=== PATIENT | female | born 1940 | race Caucasian/White ===

== ENCOUNTER → 2017-01-27 | Outpatient (CLI) | payer MEDICARE, OTHER | LOC: WI 09:49 | PROVIDERS: ATTEND Physician Assistant | DX: Z12.31 Encounter for screening mammogram for malignant neoplasm of breast (principal) | CPT/HCPCS: 77067; G0202 ==

== ENCOUNTER 2017-02-07 10:19 | Emergency (ER) | payer MEDICARE, OTHER ==
--- NOTE | 2017-02-07 10:55 | ER Document Report ---
ED Cardiac - General Time seen by provider: 10:45 Mode of Arrival: Medic Information source: Patient, Emergency Med Personnel TRAVEL OUTSIDE OF THE [place] IN LAST 30 DAYS: No - HPI Patient complains to provider of: Other - syncope Associated symptoms: Other - See above <DANTE MORIN - Last Filed: 02/07/17 14:16> <AMMYERIKA CHAPARRITA - Last Filed: 02/07/17 19:37> - General Chief Complaint: Syncope Stated Complaint: syncope Notes: Patient is a 76 year old female, with a past medical history including HTN and DM, who presents to the emergency department via EMS for syncope. Patient reports she does not recall the episode, per patient was standing in the bathroom, turned and then lost consciousness. Patient states this has never happened before and she does not have a history of low heart rate. Patient reports she is currently feeling tired. Patient denies any new or changing medications, being on blood thinners, recent Asa use, chest pain, breathing difficulties, headache, or recent illness. Patient is currently on Lisinopril and Metformin. En route, EMS administered 1mg of Atropine to raise patient's heart rate from the 40s to the 60s, in room patient's heart rate was in the low 50s. (DANTE MORIN) - Related Data Allergies/Adverse Reactions: Penicillins Allergy (Verified 02/07/17 10:48) Home Medications: Current Home Medications Citalopram Hydrobromide [Citalopram HBr] 10 mg PO DAILY 02/07/17 [History] Lisinopril [Lisinopril] 10 mg PO DAILY 02/07/17 [History] Loratadine [Loratadine] 10 mg PO DAILY 02/07/17 [History] Metformin HCl [Metformin HCl] 1,000 mg PO DAILY 02/07/17 [History] Simvastatin [Simvastatin] 10 mg PO DAILY 02/07/17 [History] Past Medical History - General Information source: Patient - Social History Smoking Status: Unknown if Ever Smoked Family History: Reviewed & Not Pertinent - Past Medical History Cardiac Medical History: Reports: Hx Hypertension Endocrine Medical History: Reports: Hx Diabetes Mellitus Type 2 Past Surgical History: Reports: Hx Hysterectomy <DANTE MORIN - Last Filed: 02/07/17 14:16> Review of Systems - Review of Systems Constitutional: See HPI, Other - Tired EENT: No symptoms reported Cardiovascular: Syncope. denies: Chest pain Respiratory: denies: Other - Difficulty breathing Gastrointestinal: No symptoms reported Genitourinary: No symptoms reported Female Genitourinary: No symptoms reported Musculoskeletal: No symptoms reported Skin: No symptoms reported Hematologic/Lymphatic: No symptoms reported Neurological/Psychological: denies: Headaches -: Yes All other systems reviewed and negative <DANTE MORIN - Last Filed: 02/07/17 14:16> Physical Exam - Vital signs Interpretation: Bradycardic - HEENT Head: Normocephalic, Atraumatic Mucous membranes: Dry - Respiratory Respiratory status: No respiratory distress Chest status: Nontender Breath sounds: Normal Chest palpation: Normal - Cardiovascular Rhythm: Bradycardia Heart sounds: Normal auscultation Murmur: No - Abdominal Inspection: Normal Distension: No distension Bowel sounds: Normal Tenderness: Nontender Organomegaly: No organomegaly - Extremities General upper extremity: Normal inspection, Normal ROM, Normal strength General lower extremity: Normal inspection, Normal ROM, Normal strength - Neurological Neuro grossly intact: Yes Cognition: Confused - slightly Orientation: AAOx4 [place] Coma Scale Eye Opening: Spontaneous Viraj Coma Scale Verbal: Oriented [place] Coma Scale Motor: Obeys Commands [place] Coma Scale Total: 15 Speech: Normal Motor strength normal: LUE, RUE, LLE, RLE - Psychological Associated symptoms: Normal affect, Normal mood - Skin Skin Temperature: Warm Skin Moisture: Dry Skin Color: Normal <DANTE MORIN - Last Filed: 02/07/17 14:16> Course - Laboratory Result Diagrams: 02/07/17 10:35 02/07/17 11:59 - Consults [facility] Time consulted: 11:08 Hospitalist Time consulted: 11:11 <DANTE MORIN - Last Filed: 02/07/17 14:16> - Laboratory Result Diagrams: 02/07/17 10:35 02/07/17 11:59 - Diagnostic Test Radiology reviewed: Reports reviewed - EKG Interpretation by Me EKG shows normal: Sinus rhythm Rate: Bradycardia <ERIKA GIMENEZ - Last Filed: 02/07/17 19:37> - Re-evaluation Re-evalutation: 02/07/17 12:30 Patient is a 76-year-old female who presents after an episode of syncope and being unresponsive. Patient was noted to have heart rate in the 40s and hypotension. Patient had been given atropine by EMS and had resolution of symptoms. Patient is noted to be persistently bradycardic here. She is not on any rate lowering medications. Patient has no history of heart disease and has no history of syncope. Patient was discussed with the hospitalist service who recommends transfer. Patient was discussed with Dr. Levin at [facility] who will accept the patient in transfer for further workup of her syncope and symptomatic bradycardia. Stable at time of transfer. (ERIKA GIMENEZ) - Vital Signs Vital signs: Temp Pulse Resp BP Pulse Ox 97.6 F 46 L 12 121/61 98 02/07/17 12:52 02/07/17 12:52 02/07/17 12:52 02/07/17 12:52 02/07/17 12:52 - Laboratory Laboratory results interpreted by me: 02/07/17 02/07/17 02/07/17 10:35 11:59 11:59 Eosinophils % 12.4 H Potassium 5.3 H BUN 22 H Total Protein 5.9 L TSH 5.59 H - Consults [facility] Reason for consultation: 02/07/17 11:08 Discussed patient's condition with Dr. Levin who will call ED and get back to me. 02/07/17 11:31 Dr. Levin called back and agrees to accept transfer based on [facility] hospitalist declining admission. (DANTE MORIN) Hospitalist Reason for consultation: 02/07/17 11:11 Discussed patient's condition with Dr. Irvin who agrees patient should be transferred. 02/07/17 11:[address] Irvin of patient's transfer to [facility] (DANTE MORIN) Discharge <DANTE MORIN - Last Filed: 02/07/17 14:16> <ERIKA GIMENEZ - Last Filed: 02/07/17 19:37> - Discharge Clinical Impression: Symptomatic bradycardia Syncope Qualifiers: Syncope type: unspecified Qualified Code(s): R55 - Syncope and collapse Condition: Stable Disposition: [facility], [facility] Referrals: JENNIFER CEDEÑO MD [Primary Care Provider] - Follow up as needed Scribe Attestation: 02/07/17 19:37 I personally performed the services described in the documentation, reviewed and edited the documentation which was dictated to the scribe in my presence, and it accurately records my words and actions. (ERIKA GIMENEZ) Scribe Documentation - Scribe Written by Lc:: lc Meneses, 02/07/17, 1105 acting as scribe for :: Ammy <DANTE MORIN - Last Filed: 02/07/17 14:16>
[2017-02-07 10:58] LABS: ABSOLUTE EOSINOPHILS # (AUTO) 0.6 10^3/uL (0.0-0.6); ABSOLUTE LYMPHOCYTES (AUTO) 1.6 10^3/uL (0.5-4.7); ABSOLUTE MONOCYTES (AUTO) 0.4 10^3/uL (0.1-1.4); ABSOLUTE NEUT (AUTO) 2.2 10^3/uL (1.7-8.2); BASOPHILS % (AUTO) 0.7 % (0-2); EOSINOPHILS % (AUTO) 12.4 % (0-6); HEMATOCRIT 36.8 % (36.0-47.0); HEMOGLOBIN 12.2 g/dL (12.0-15.5); HGB HCT DIFFERENCE -0.2; LYMPHOCYTES % (AUTO) 33.6 % (13-45); MEAN CORPUSCULAR HEMOGLOBIN 29.4 pg (27.0-33.4); MEAN CORPUSCULAR HGB CONC 33.2 g/dL (32.0-36.0); MEAN CORPUSCULAR VOLUME 89 fl (80-97); MONOCYTES % (AUTO) 8.6 % (3-13); RED BLOOD COUNT 4.16 10^6/uL (3.72-5.28); RED CELL DISTRIBUTION WIDTH 13.6 % (11.5-14.0); SEGMENTED NEUTROPHILS % (AUTO) 44.7 % (42-78); WHITE BLOOD COUNT 4.9 10^3/uL (4.0-10.5)
[2017-02-07 12:36] VITALS: BP 121/61
[2017-02-07 12:42] LABS: ALANINE AMINOTRANSFERASE 27 U/L (9-52); ALBUMIN 3.6 g/dL (3.5-5.0); ALKALINE PHOSPHATASE 65 U/L (38-126); ANION GAP 10 (5-19); ASPARTATE AMINO TRANSFERASE 18 U/L (14-36); BILIRUBIN,DIRECT 0.1 mg/dL (0.0-0.4); BILIRUBIN,TOTAL 0.7 mg/dL (0.2-1.3); BLOOD UREA NITROGEN 22 mg/dL (7-20); CALCIUM 9.2 mg/dL (8.4-10.2); CARBON DIOXIDE 27 mmol/L (22-30); CHLORIDE 103 mmol/L (98-107); CREATINE KINASE 34 U/L (30-135); CREATININE RESULT 0.77 mg/dL (0.52-1.25); GLUCOSE 109 mg/dL (75-110); POTASSIUM 5.3 mmol/L (3.6-5.0); SODIUM 140.3 mmol/L (137-145); TOTAL PROTEIN 5.9 g/dL (6.3-8.2)
[2017-02-07 12:53] LABS: CREATINE KINASE MB 0.61 ng/mL (<4.55)
--- NOTE | 2017-02-07 12:54 | EKG REPORT ---
SEVERITY:- OTHERWISE NORMAL ECG - SINUS RHYTHM LOW VOLTAGE IN FRONTAL LEADS : Confirmed by: Eunice Dejesus MD 07-Feb-2017 12:53:11
[2017-02-07 12:55] LABS: TROPONIN I < 0.012 ng/mL
--- NOTE | 2017-02-07 19:10 | EKG REPORT ---
SEVERITY:- OTHERWISE NORMAL ECG - SINUS BRADYCARDIA LOW VOLTAGE IN FRONTAL LEADS : Confirmed by: Eunice Dejesus MD 07-Feb-2017 19:10:25
== END 2017-02-07 13:00 | disposition short-term general hospital (02) ==
LOC: ER 10:19
DX: R00.1 Bradycardia, unspecified (principal); R55 Syncope and collapse; I10 Essential (primary) hypertension; E11.9 Type 2 diabetes mellitus without complications; Z79.899 Other long term (current) drug therapy
CPT/HCPCS: 36415; 70450; 71010; 80053; 82550; 82553; 84443; 84484; 85025; 93005; 93010; 99285

== ENCOUNTER → 2018-02-01 | Outpatient (CLI) | payer MEDICAID, MEDICARE, OTHER ==
--- NOTE | 2018-02-01 17:21 | WOMENS IMAGING REPORT ---
EXAM DESCRIPTION: 3D SCREENING MAMMO BILAT COMPLETED DATE/TIME: 02/01/2018 11:08 am REASON FOR STUDY: SCREENING MAMMO Z12.31 ENCNTR SCREEN MAMMOGRAM FOR MALIGNANT NEOPLASM OF SERGEY COMPARISON: 2013 to 2016 TECHNIQUE: Standard craniocaudal and mediolateral oblique views of each breast recorded using digita l acquisition and breast tomosynthesis. LIMITATIONS: None. FINDINGS: No masses, calcifications or architectural distortion. No areas of suspicion. Read with the assistance of CAD. .[facility] - R2 Cenova Version 1.3 .[facility] - R2 Cenova Version 1.3 .[facility] - R2 Cenova Version 2.4 .[facility] - R2 Cenova Version 2.4 .[facility] - R2 Executive Manager Version 9.2 IMPRESSION: NORMAL MAMMOGRAM. BIRADS 1. BREAST DENSITY: b. There are scattered areas of fibroglandular density. BIRAD: 1 NEGATIVE RECOMMENDATION: ROUTINE SCREENING COMMENT: The patient has been notified of the results by letter per SA requirements. Additional no tification policies are in place for contacting patient with suspicious or incomplete findings. Quality ID #[id number]: The [employer] recommends an annual screening mammogram for women aged 40 years or over. This facility utilizes a reminder system to ensure that all patients receive reminder letters, and/or direct phone calls for appointments. This includes reminders for routine scr eening mammograms, diagnostic mammograms, or other Breast Imaging Interventions when appropriate. Th is patient will be placed in the appropriate reminder system. The [place] [employer] (ACR) has developed recommendations for screening MRI of the breast s in certain patient populations, to be used in conjunction with mammography. Breast MRI surveillanc e may be appropriate for women with more than 20% lifetime risk of developing breast cancer as deter mined by genetic testing, significant family history of the disease, or history of mantle radiation f or Hodgkins Disease. ACR Practice Guidelines 2008. DBT Technology DBT is a type of tomographic mammography. With conventional mammography, overlapping breast tissue ma y make lesions difficult to detect, even with good compression. DBT uses an x-ray tube that rotates a round the breast, taking images at different angles. These images are then combined to create thin sl ices of the breast that the radiologist can view as a 3D reconstruction. The [employer] unit can perform full-field digital mammograms (2D imaging); or DBT (3D imaging); or both, in a combination mode that quickly performs both the mammogram and the tomosynthesis scan while the breast is still compressed. PQRS 6045F: Fluoroscopic imaging is not utilized for breast tomosynthesis. TECHNICAL DOCUMENTATION: FINDING NUMBER: (1) ASSESSMENT: (1) JOB ID: [id number] [employer]- All Rights Reserved Reading location - IP/workstation name: [email or web address] [id number]
== END ==
LOC: WI 10:44
PROVIDERS: ATTEND Physician Assistant
DX: Z12.31 Encounter for screening mammogram for malignant neoplasm of breast (principal)
CPT/HCPCS: 77063; 77067

== ENCOUNTER 2018-08-01 11:09 | Emergency (ER) | payer MEDICARE ==
[2018-08-01] MEDS ORDERED: NORMAL SALINE 1000 ML 1,000 ML IV ONE (11:43)
--- NOTE | 2018-08-01 11:49 | ER Document Report ---
ED General - General Chief Complaint: Altered Mental Status Stated Complaint: ALTERED MENTAL STATUS Time Seen by Provider: 08/01/18 11:20 TRAVEL OUTSIDE OF THE [place] IN LAST 30 DAYS: No - HPI Notes: Patient is a 78-year-old female that presents to the emergency department for chief complaint of weakness. Patient was checked on by members of her latter day after her and her were not heard from for a few days. EMS reports that the house was disheveled and that her and her were eating food out of the refrigerator that had been without power for a few days. She complains of generalized fatigue but has no specific complaints. She does have a history of dementia and is reportedly at her baseline mental status per her and her mitochondrial disorders counselor. Patient denies any nausea, vomiting, abdominal pain, chest pain, shortness of breath, headache, vision changes and diarrhea. HPI is limited because of patient's dementia. Past Medical History: Dementia, hyperlipidemia, hypertension, diabetes Past Surgical History: Denies Social History: Denies drugs alcohol and tobacco Family History: Reviewed and noncontributory for presenting illness Allergies: Reviewed, see documented allergy list. REVIEW OF SYSTEMS: CONSTITUTIONAL : Fatigue No fever No chills No diaphoresis No recent illness EENT: No vision changes No congestion No sore throat CARDIOVASCULAR: No chest pain No palpitations RESPIRATORY: No shortness of breath No cough No difficulty breathing GASTROINTESTINAL: No abdominal pain No nausea No vomiting No diarrhea GENITOURINARY: No dysuria No hematuria No difficulty urinating MUSCULOSKELETAL: No back pain No leg pain No arm pain SKIN: No rashes No lesions LYMPHATIC: No swollen, enlarged glands. NEUROLOGICAL: No lightheadedness No headache No weakness No paresthesias PSYCHIATRIC: No anxiety No depression PHYSICAL EXAMINATION: Vital signs reviewed, nursing noted reviewed. GENERAL: Well-appearing, well-nourished and in no acute distress. HEAD: Atraumatic, normocephalic. EYES: Eyes appear normal, extraocular movements intact, sclera anicteric, conjunctiva are normal. ENT: nares patent, oropharynx clear without exudates. Mildly dry mucous membranes. NECK: Normal range of motion, supple without lymphadenopathy LUNGS: Breath sounds clear to auscultation bilaterally and equal. No wheezes rales or rhonchi. HEART: Regular rate and rhythm without murmurs ABDOMEN: Soft, nontender, normoactive bowel sounds. No rebound, guarding, or rigidity. No masses appreciated. EXTREMITIES: Nontender, good range of motion, no pitting or edema. NEUROLOGICAL: No focal neurological deficits. Moves all extremities spontaneously Motor and sensory grossly intact on exam. Oriented to person and place. Disoriented to time PSYCH: Normal mood, normal affect. SKIN: Warm, Dry, normal turgor, no rashes or lesions noted on exposed skin - Related Data Allergies/Adverse Reactions: Penicillins Allergy (Verified 02/07/17 10:48) Past Medical History - Social History Smoking Status: Never Smoker Chew tobacco use (# tins/day): No Frequency of alcohol use: None Drug Abuse: None Family History: Reviewed & Not Pertinent Patient has suicidal ideation: No Patient has homicidal ideation: No - Past Medical History Cardiac Medical History: Reports: Hx Hypertension Endocrine Medical History: Reports: Hx Diabetes Mellitus Type 2 Renal/ Medical History: Denies: Hx Peritoneal Dialysis Past Surgical History: Reports: Hx Hysterectomy Review of Systems - Review of Systems Notes: Dictated Physical Exam - Vital signs Vitals: Temp Resp BP Pulse Ox 98 F 14 121/55 L 100 08/01/18 11:55 08/01/18 11:55 08/01/18 11:55 08/01/18 11:55 - Notes Notes: Dictated Course - Re-evaluation Re-evalutation: 08/01/18 11:48 Vitals reviewed. Nursing notes reviewed. Patient awake, alert and in no acute distress. EKG shows no acute ischemia 08/01/18 12:51 Patient has remained hemodynamically stable she is bradycardic but has a pacemaker and is not symptomatic. Lab work shows no dehydration or electrolyte derangement. She has no pneumonia or urinary tract infection. Cardiac enzyme is normal. Patient is requesting to be discharged home. She is at her baseline mental status. She will be discharged in stable condition. She was told to follow with her primary care provider in a few days for reevaluation. She will return to the emergency room for any new or worsening symptoms. 08/01/18 12:51 Laboratory 08/01/18 08/01/18 08/01/18 11:28 11:28 11:28 WBC 4.8 RBC 4.14 Hgb 12.5 Hct 36.9 MCV 89 MCH 30.1 MCHC 33.8 RDW 13.1 Plt Count 208 Seg Neutrophils % 41.9 L Lymphocytes % 35.6 Monocytes % 10.8 Eosinophils % 10.4 H Basophils % 1.3 Absolute Neutrophils 2.0 Absolute Lymphocytes 1.7 Absolute Monocytes 0.5 Absolute Eosinophils 0.5 Absolute Basophils 0.1 Sodium 139.2 Potassium 4.6 Chloride 105 Carbon Dioxide 31 H Anion Gap 3 L BUN 27 H Creatinine 1.02 Est GFR ( Amer) > 60 Est GFR (Non-Af Amer) 53 L Glucose 86 Calcium 9.4 Troponin I < 0.012 Urine Color Urine Appearance Urine pH Ur Specific [place] Urine Protein Urine Glucose (UA) Urine Ketones Urine Blood Urine Nitrite Urine Bilirubin Urine Urobilinogen Ur Leukocyte Esterase Urine WBC (Auto) Urine RBC (Auto) Urine Bacteria (Auto) Amorphous Sediment Auto Urine Mucus (Auto) Urine Ascorbic Acid 08/01/18 11:28 WBC RBC Hgb Hct MCV MCH MCHC RDW Plt Count Seg Neutrophils % Lymphocytes % Monocytes % Eosinophils % Basophils % Absolute Neutrophils Absolute Lymphocytes Absolute Monocytes Absolute Eosinophils Absolute Basophils Sodium Potassium Chloride Carbon Dioxide Anion Gap BUN Creatinine Est GFR ( Amer) Est GFR (Non-Af Amer) Glucose Calcium Troponin I Urine Color YELLOW Urine Appearance TURBID Urine pH 5.0 Ur Specific [place] 1.024 Urine Protein NEGATIVE Urine Glucose (UA) NEGATIVE Urine Ketones NEGATIVE Urine Blood SMALL H Urine Nitrite NEGATIVE Urine Bilirubin NEGATIVE Urine Urobilinogen NEGATIVE Ur Leukocyte Esterase NEGATIVE Urine WBC (Auto) 9 Urine RBC (Auto) 3 Urine Bacteria (Auto) 1+ Amorphous Sediment Auto 3+ Urine Mucus (Auto) MANY Urine Ascorbic Acid NEGATIVE Chest X-Ray 08/01/18 11:43 IMPRESSION: NO ACUTE RADIOGRAPHIC FINDING IN THE CHEST. - Vital Signs Vital signs: Temp Pulse Resp BP Pulse Ox 98 F 50 L 19 125/78 99 08/01/18 11:55 08/01/18 12:00 08/01/18 12:01 08/01/18 12:01 08/01/18 12:01 - Laboratory Result Diagrams: 08/01/18 11:28 08/01/18 11:28 Laboratory results interpreted by me: 08/01/18 08/01/18 08/01/18 11:28 11:28 11:28 Seg Neutrophils % 41.9 L Eosinophils % 10.4 H Carbon Dioxide 31 H Anion Gap 3 L BUN 27 H Est GFR (Non-Af Amer) 53 L Urine Blood SMALL H - EKG Interpretation by Me Additional EKG results interpreted by me: 08/01/18 11:49 1116: Atrial paced rhythm, rate 50, low voltage, normal MO and QRS, and no ectopy Discharge - Discharge Clinical Impression: Generalized weakness, Bradycardia Condition: Stable Disposition: HOME, SELF-CARE Instructions: Fatigue ([facility]) Additional Instructions: Please return to the emergency department if you have any worsening, or concern of your symptoms. Please return to the emergency department if you develop chest pain, difficulty breathing, severe abdominal pain, or ongoing vomiting. Please follow-up with your primary care physician in 2-3 days and any other recommended physicians. If prescribed, take all medications as directed. If you have any questions or concerns do not hesitate to return the emergency department for evaluation. [] Referrals: ERIKA LOONEY PA [Primary Care Provider] - Follow up in 3-5 days
[2018-08-01 12:04] LABS: ABSOLUTE BASOPHILS # (AUTO) 0.1 10^3/uL (0.0-0.2); ABSOLUTE EOSINOPHILS # (AUTO) 0.5 10^3/uL (0.0-0.6); ABSOLUTE LYMPHOCYTES (AUTO) 1.7 10^3/uL (0.5-4.7); ABSOLUTE MONOCYTES (AUTO) 0.5 10^3/uL (0.1-1.4); BASOPHILS % (AUTO) 1.3 % (0-2); EOSINOPHILS % (AUTO) 10.4 % (0-6); HEMATOCRIT 36.9 % (36.0-47.0); HEMOGLOBIN 12.5 g/dL (12.0-15.5); LYMPHOCYTES % (AUTO) 35.6 % (13-45); MEAN CORPUSCULAR HEMOGLOBIN 30.1 pg (27.0-33.4); MEAN CORPUSCULAR HGB CONC 33.8 g/dL (32.0-36.0); MEAN CORPUSCULAR VOLUME 89 fl (80-97); MONOCYTES % (AUTO) 10.8 % (3-13); PLATELET COUNT 208 10^3/uL (150-450); RED BLOOD COUNT 4.14 10^6/uL (3.72-5.28); RED CELL DISTRIBUTION WIDTH 13.1 % (11.5-14.0); SEGMENTED NEUTROPHILS % (AUTO) 41.9 % (42-78); TOTAL CELLS COUNTED % (AUTO) 100 %; WHITE BLOOD COUNT 4.8 10^3/uL (4.0-10.5)
[2018-08-01 12:09] LABS: AMORPHOUS SEDIMENT,URINE 3+ /HPF; APPEARANCE,URINE TURBID; BILIRUBIN,URINE NEGATIVE (NEGATIVE); COLOR,URINE YELLOW; GLUCOSE, URINE NEGATIVE (NEGATIVE); KETONES,URINE NEGATIVE (NEGATIVE); LEUKOCYTE ESTERASE,URINE NEGATIVE (NEGATIVE); NITRITE,URINE NEGATIVE (NEGATIVE); PROTEIN,URINE NEGATIVE (NEGATIVE); URINE SPECIFIC GRAVITY 1.024; UROBILINOGEN,URINE NEGATIVE mg/dL (<2.0)
[2018-08-01 12:12] LABS: BLOOD UREA NITROGEN 27 mg/dL (7-20); CALCIUM 9.4 mg/dL (8.4-10.2); CARBON DIOXIDE 31 mmol/L (22-30); GLUCOSE 86 mg/dL (75-110); POTASSIUM 4.6 mmol/L (3.6-5.0); SODIUM 139.2 mmol/L (137-145)
--- NOTE | 2018-08-01 12:12 | RADIOLOGY REPORT (SQ) ---
EXAM DESCRIPTION: CHEST SINGLE VIEW COMPLETED DATE/TIME: 08/01/2018 12:01 pm REASON FOR STUDY: cough COMPARISON: 02/07/2017 EXAM PARAMETERS: NUMBER OF VIEWS: One view. TECHNIQUE: Single frontal radiographic view of the chest acquired. RADIATION DOSE: NA LIMITATIONS: None. FINDINGS: LUNGS AND PLEURA: No opacities, masses or pneumothorax. No pleural effusion. MEDIASTINUM AND HILAR STRUCTURES: No masses. Contour normal. HEART AND VASCULAR STRUCTURES: Heart normal in size. Normal vasculature. BONES: No acute findings. HARDWARE: Left dual lead pacemaker. OTHER: No other significant finding. IMPRESSION: NO ACUTE RADIOGRAPHIC FINDING IN THE CHEST. TECHNICAL DOCUMENTATION: JOB ID: [id number] [employer]- All Rights Reserved Reading location - IP/workstation name: [email or web address]
[2018-08-01 12:17] LABS: CHLORIDE 105 mmol/L (98-107)
[2018-08-01 12:19] LABS: ANION GAP 3 (5-19)
[2018-08-01 13:25] VITALS: BP 122/74
--- NOTE | 2018-08-01 17:03 | EKG REPORT ---
SEVERITY:- ABNORMAL ECG - ATRIAL-PACED RHYTHM LOW VOLTAGE IN FRONTAL LEADS : Confirmed by: Eunice Dejesus MD 01-Aug-2018 17:01:52
== END 2018-08-01 13:26 | disposition home or self-care (01) ==
LOC: ER 11:09
DX: R53.1 Weakness (principal); R00.1 Bradycardia, unspecified; R53.83 Other fatigue; F03.90 Unspecified dementia, unspecified severity, without behavioral disturbance, psychotic disturbance, mood disturbance, and anxiety; I10 Essential (primary) hypertension; E11.9 Type 2 diabetes mellitus without complications; Z88.0 Allergy status to penicillin; Z95.0 Presence of cardiac pacemaker
CPT/HCPCS: 36415; 71045; 80048; 81001; 84484; 85025; 93005; 93010; 96360; 99285

== ENCOUNTER → 2019-02-06 | Outpatient (CLI) | payer MEDICARE ==
--- NOTE | 2019-02-06 16:06 | WOMENS IMAGING REPORT ---
EXAM DESCRIPTION: 3D SCREENING MAMMO BILAT COMPLETED DATE/TIME: 02/06/2019 1:25 pm REASON FOR STUDY: Z12.31 ROUTINE 3D BILATERAL SCREENING Z12.31 ENCNTR SCREEN MAMMOGRAM FOR MALIGNAN T NEOPLASM OF SERGEY COMPARISON: 02/01/2018 and 01/27/2017. TECHNIQUE: Standard craniocaudal and mediolateral oblique views of each breast recorded using digita l acquisition and breast tomosynthesis. LIMITATIONS: None. FINDINGS: No masses, calcifications or architectural distortion. No areas of suspicion. Read with the assistance of CAD. .[facility] - R2 Cenova Version 1.3 .[facility] - R2 Cenova Version 2.1 .[facility] - R2 Cenova Version 2.4 .[facility] [place] R2 Cenova Version 2.4 .[facility] - R2 [employer] Instructor Version 9.2 IMPRESSION: NORMAL MAMMOGRAM. BIRADS 1. BREAST DENSITY: b. There are scattered areas of fibroglandular density. BIRAD: 1 NEGATIVE RECOMMENDATION: ROUTINE SCREENING COMMENT: The patient has been notified of the results by letter per SA requirements. Additional no tification policies are in place for contacting patient with suspicious or incomplete findings. Quality ID #[id number]: The [employer] [employer] recommends an annual screening mammogram for women aged 40 years or over. This facility utilizes a reminder system to ensure that all patients receive reminder letters, and/or direct phone calls for appointments. This includes reminders for routine scr eening mammograms, diagnostic mammograms, or other Breast Imaging Interventions when appropriate. Th is patient will be placed in the appropriate reminder system. The [employer] [employer] (ACR) has developed recommendations for screening MRI of the breast s in certain patient populations, to be used in conjunction with mammography. Breast MRI surveillanc e may be appropriate for women with more than 20% lifetime risk of developing breast cancer as deter mined by genetic testing, significant family history of the disease, or history of mantle radiation f or Hodgkins Disease. ACR Practice Guidelines 2008. DBT Technology DBT is a type of tomographic mammography. With conventional mammography, overlapping breast tissue ma y make lesions difficult to detect, even with good compression. DBT uses an x-ray tube that rotates a round the breast, taking images at different angles. These images are then combined to create thin sl ices of the breast that the radiologist can view as a 3D reconstruction. The [employer] unit can perform full-field digital mammograms (2D imaging); or DBT (3D imaging); or both, in a combination mode that quickly performs both the mammogram and the tomosynthesis scan while the breast is still compressed. PQRS 6045F: Fluoroscopic imaging is not utilized for breast tomosynthesis. TECHNICAL DOCUMENTATION: FINDING NUMBER: (1) ASSESSMENT: (1) JOB ID: [id number] [employer]- All Rights Reserved Reading location - IP/workstation name: [email or web address]
== END ==
LOC: WI 12:58
PROVIDERS: ATTEND Physician Assistant
DX: Z12.31 Encounter for screening mammogram for malignant neoplasm of breast (principal)
CPT/HCPCS: 77063; 77067

== ENCOUNTER 2020-03-03 11:39 | Emergency (ER) | payer MEDICARE ==
--- NOTE | 2020-03-03 12:12 | ER Document Report ---
ED Medical Screen (RME) - General Chief Complaint: General Weakness Stated Complaint: DR JAMEY Time Seen by Provider: 03/03/20 11:54 Primary Care Provider: LUZ MARIA VILLALOBOS PA [Primary Care Provider] - Follow up as needed Mode of Arrival: Wheelchair Information source: Patient Notes: 79-year-old female patient presenting from her primary care provider's office with complaint of dizziness, weakness and hypotension. Patient reports that her blood pressure was normal when she left Dr. Quezada's office, she took her blood pressure medication right after she left his office and she is now hypotensive. She reports that she has been feeling dizzy and confused over the last few days. Her caregiver is in triage with her, he reports she is not acting like herself. I have greeted and performed a rapid initial assessment of this patient. A comprehensive ED assessment and evaluation of the patient, analysis of test results and completion of the medical decision making process will be conducted by additional ED providers. I have specifically instructed the patient or family members with the patient to immediately return to any nursing staff should anything change in the patient's condition or with their chief complaint. TRAVEL OUTSIDE OF THE [place] IN LAST 30 DAYS: No - Related Data Allergies/Adverse Reactions: aspirin Allergy (Verified 03/03/20 11:49) Penicillins Allergy (Verified 03/03/20 11:48) Home Medications: Clonidine, Glucophage, Celexa, Aricept, Lisnopril, Namenda, Trazadone, Zocor Past Medical History - Social History Chew tobacco use (# tins/day): No Frequency of alcohol use: None Drug Abuse: None - Past Medical History Cardiac Medical History: Reports: Hx Hypertension Endocrine Medical History: Reports: Hx Diabetes Mellitus Type 2 Renal/ Medical History: Denies: Hx Peritoneal Dialysis Past Surgical History: Reports: Hx Hysterectomy Physical Exam - Vital signs Vitals: Temp Pulse Resp BP Pulse Ox 98.7 F 53 L 20 62/45 L 98 03/03/20 11:50 03/03/20 11:50 03/03/20 11:50 03/03/20 11:50 03/03/20 11:50 Course - Vital Signs Vital signs: Temp Pulse Resp BP Pulse Ox 98.7 F 53 L 20 62/45 L 98 03/03/20 11:52 03/03/20 11:50 03/03/20 11:50 03/03/20 11:52 03/03/20 11:50 Doctor's Discharge - Discharge Referrals: LUZ MARIA VILLALOBOS PA [Primary Care Provider] - Follow up as needed
--- NOTE | 2020-03-03 12:47 | RADIOLOGY REPORT (SQ) ---
EXAM DESCRIPTION: CHEST SINGLE VIEW IMAGES COMPLETED DATE/TIME: 03/03/2020 12:38 pm REASON FOR STUDY: weakness, confusion COMPARISON: AP view of the chest from 02/07/2017. EXAM PARAMETERS: NUMBER OF VIEWS: One view. TECHNIQUE: An AP view of the chest was obtained. RADIATION DOSE: NA LIMITATIONS: None. FINDINGS: LUNGS AND PLEURA: No consolidation, pleural effusion or pneumothorax. MEDIASTINUM AND HILAR STRUCTURES: No mediastinal or hilar contour abnormality. HEART AND VASCULAR STRUCTURES: The cardiac silhouette and pulmonary vasculature are within normal patterson its. BONES: No acute findings. HARDWARE: Intact dual lead left subclavian vein approach transvenous pacemaker. OTHER: No other finding. IMPRESSION: No acute cardiopulmonary process. TECHNICAL DOCUMENTATION: JOB ID: [id number] 2010 [employer]- All Rights Reserved Reading location - IP/workstation name: [email or web address]
[2020-03-03 13:06] LABS: ABSOLUTE BASOPHILS # (AUTO) 0.1 10^3/uL (0.0-0.2); ABSOLUTE MONOCYTES (AUTO) 0.6 10^3/uL (0.1-1.4); ABSOLUTE NEUT (AUTO) 4.9 10^3/uL (1.7-8.2); BASOPHILS % (AUTO) 0.8 % (0-2); EOSINOPHILS % (AUTO) 0.5 % (0-6); HEMATOCRIT 40.7 % (36.0-47.0); HEMOGLOBIN 13.6 g/dL (12.0-15.5); LYMPHOCYTES % (AUTO) 15.8 % (13-45); MEAN CORPUSCULAR HGB CONC 33.3 g/dL (32.0-36.0); MEAN CORPUSCULAR VOLUME 90 fl (80-97); PLATELET COUNT 210 10^3/uL (150-450); RED BLOOD COUNT 4.52 10^6/uL (3.72-5.28); RED CELL DISTRIBUTION WIDTH 14.1 % (11.5-14.0); SEGMENTED NEUTROPHILS % (AUTO) 73.9 % (42-78); TOTAL CELLS COUNTED % (AUTO) 100 %; WHITE BLOOD COUNT 6.6 10^3/uL (4.0-10.5)
[2020-03-03] MEDS ORDERED: NORMAL SALINE 1000 ML 1,000 ML IV ONE ×2 (13:12→14:54)
--- NOTE | 2020-03-03 13:21 | RADIOLOGY REPORT (SQ) ---
EXAM DESCRIPTION: CT HEAD WITHOUT IMAGES COMPLETED DATE/TIME: 03/03/2020 1:05 pm REASON FOR STUDY: confusion COMPARISON: CT of the head without contrast from 02/07/2017. TECHNIQUE: Axial images acquired through the brain without intravenous contrast. Images reviewed wi th bone, brain and subdural windows. Additional sagittal and coronal reconstructions were generated. Images stored on PACS. All CT scanners at this facility use dose modulation, iterative reconstruction, and/or weight based d osing when appropriate to reduce radiation dose to as low as reasonably achievable (ALARA). [facility]: Dose Right [facility]: CareDose [facility]: Dose Right [facility]: Teradose 4D [facility]: Varolii RADIATION DOSE: CT Rad equipment meets quality standard of care and radiation dose reduction techniq ues were employed. CTDIvol: 53.2 mGy. DLP: 1017 mGy-cm. LIMITATIONS: None. FINDINGS: The confluent areas of hypoattenuation within the supratentorial periventricular and subco rtical white matter are unchanged. There is a questionable round isodense cystic lesion near the for amen of [place] that measures 8 x 8 mm and is unchanged in size from 02/07/2017. There is no acute intracranial hemorrhage, vascular territorial infarct, extra-axial fluid collection , mass effect or midline shift. The gloria-white matter differentiation is preserved. There is no eff acement of the cerebral sulci or basal subarachnoid cisterns. The caliber the ventricles is concorda nt with the degree of sulcation and unchanged from 02/07/2017. The orbits and globes are intact. There is a mucous retention cyst within the left maxillary sinus. There is a jerry hole in the right parietal bone. There is no acute calvarial fracture. IMPRESSION: No acute intracranial abnormality. EVIDENCE OF ACUTE STROKE: NO. COMMENT: Quality ID # [id number]: Final reports with documentation of one or more dose reduction techniques (e.g., Automated exposure control, adjustment of the mA and/or kV according to patient size, use of iterative reconstruction technique) TECHNICAL DOCUMENTATION: JOB ID: [id number] 2010 [employer]- All Rights Reserved Reading location - IP/workstation name: [email or web address]
[2020-03-03 13:23] LABS: ALBUMIN 4.2 g/dL (3.5-5.0); ALKALINE PHOSPHATASE 67 U/L (38-126); ANION GAP 10 (5-19); ASPARTATE AMINO TRANSFERASE 22 U/L (14-36); BILIRUBIN,TOTAL 1.5 mg/dL (0.2-1.3); BLOOD UREA NITROGEN 29 mg/dL (7-20); CALCIUM 9.8 mg/dL (8.4-10.2); CARBON DIOXIDE 25 mmol/L (22-30); CHLORIDE 100 mmol/L (98-107); GLUCOSE 100 mg/dL (75-110); POTASSIUM 4.7 mmol/L (3.6-5.0); TOTAL PROTEIN 6.8 g/dL (6.3-8.2)
--- NOTE | 2020-03-03 14:29 | ER Document Report ---
Entered by NIELS WHITLEY SCRIBE 03/03/20 1253 Acting as scribe for:MATT HARRIS MD ED General - General Chief Complaint: General Weakness Stated Complaint: DR JAMEY Time Seen by Provider: 03/03/20 11:54 Primary Care Provider: LUZ MARIA VILLALOBOS PA [NO LOCAL MD] - Follow up as needed Mode of Arrival: Wheelchair Information source: Patient, Relative, Dr. Office, [facility] Records Notes: This 79 year old female patient presents to the emergency department today with complaints of generalized weakness for the last few days. Family member at bedside states that he made the patient an appointment today at her primary care physician's office, Dr. Quezada, for this generalized weakness. Family member states that patient needed a little bit of assistance with ambulation into the office which is not normal and by the time it was ready for them to go from the waiting room to the examination room he had to "basically carry her" due to weakness. TRAVEL OUTSIDE OF THE [place] IN LAST 30 DAYS: No - Related Data Allergies/Adverse Reactions: aspirin Allergy (Verified 03/03/20 11:49) Penicillins Allergy (Verified 03/03/20 11:48) Home Medications: Clonidine, Glucophage, Celexa, Aricept, Lisnopril, Namenda, Trazadone, Zocor Past Medical History - General Information source: Patient - Social History Smoking Status: Never Smoker Cigarette use (# per day): No Chew tobacco use (# tins/day): No Frequency of alcohol use: None Drug Abuse: None Lives with: Family Family History: Reviewed & Not Pertinent Patient has suicidal ideation: No Patient has homicidal ideation: No - Past Medical History Cardiac Medical History: Reports: Hx Hypercholesterolemia, Hx Hypertension Endocrine Medical History: Reports: Hx Diabetes Mellitus Type 2 Past Surgical History: Reports: Hx Hysterectomy, Hx Pacemaker - History of sick sinus syndrome Review of Systems - Review of Systems Constitutional: See HPI, Weakness, Other - "wobbly" ambulation EENT: No symptoms reported Cardiovascular: See HPI, Dizziness Respiratory: No symptoms reported Gastrointestinal: No symptoms reported Genitourinary: No symptoms reported Female Genitourinary: No symptoms reported Musculoskeletal: No symptoms reported Skin: No symptoms reported Hematologic/Lymphatic: No symptoms reported Neurological/Psychological: No symptoms reported -: Yes All other systems reviewed and negative Physical Exam - Vital signs Vitals: Temp Pulse Resp BP Pulse Ox 98.7 F 53 L 20 62/45 L 98 03/03/20 11:50 03/03/20 11:50 03/03/20 11:50 03/03/20 11:50 03/03/20 11:50 Interpretation: Normal - General General appearance: Alert, Other - fairly thin appearing In distress: None - HEENT Head: Normocephalic, Atraumatic Eyes: Normal Pupils: PERRL - Respiratory Respiratory status: No respiratory distress Breath sounds: Normal Chest palpation: Normal - Cardiovascular Rhythm: Regular Heart sounds: Normal auscultation Murmur: No Notes: Pressure of 118/76 in supine position, 77/57 when standing. - Abdominal Inspection: Normal Distension: No distension Bowel sounds: Normal Tenderness: Nontender Organomegaly: No organomegaly - Back Back: Normal, Nontender - Extremities General upper extremity: Normal inspection, Nontender, Normal strength General lower extremity: Normal inspection, Nontender, Normal strength - Neurological Neuro grossly intact: Yes Cognition: Normal Orientation: AAOx4 Howell Coma Scale Eye Opening: Spontaneous Howell Coma Scale Verbal: Oriented Howell Coma Scale Motor: Obeys Commands Viraj Coma Scale Total: 15 Speech: Normal - Psychological Associated symptoms: Normal affect, Normal mood - Skin Skin Temperature: Warm Skin Moisture: Dry Skin Color: Normal Course - Re-evaluation Re-evalutation: 03/03/20 13:16 The patient was allowed to stand up to check her blood pressure and it was 77/57 standing. She will be given 1 L of IV normal saline and reassess. 03/03/20 17:15 After 1 L of normal saline, the patient was allowed to stand again and her pressure dropped into the 70s again. She was given a second liter of normal saline. After the second liter of saline was then, her blood pressure was in the 1 40-1 50 systolic range. After about an hour, the nurse had the patient stand up and her pressure did not drop, and allow the patient to walk around and she was not wobbly or off balance at all. She is walking quite well. She and her son both report that her walking is back to baseline. - Vital Signs Vital signs: Temp Pulse Resp BP Pulse Ox 98.1 F 52 L 14 163/91 H 96 03/03/20 12:16 03/03/20 13:17 03/03/20 17:01 03/03/20 17:01 03/03/20 17:01 - Laboratory Result Diagrams: 03/03/20 12:55 03/03/20 12:55 Laboratory results interpreted by me: 03/03/20 03/03/20 03/03/20 12:55 12:55 14:45 RDW 14.1 H Sodium 134.8 L BUN 29 H Creatinine 1.45 H Est GFR ( Amer) 42 L Est GFR (MDRD) Non-Af 35 L Total Bilirubin 1.5 H Urine Blood SMALL H - EKG Interpretation by Me EKG shows normal: Sinus rhythm, [place], Intervals, QRS Complexes, ST-T Waves Rate: Normal - 50 Rhythm: Other - Atrial paced rhythm Critical Care Note - Critical Care Note Total time excluding time spent on procedures (mins): 35 Discharge - Discharge Clinical Impression: Orthostatic hypotension, Dehydration Condition: Stable Disposition: HOME, SELF-CARE Additional Instructions: Orthostatic Hypotension You have orthostatic hypotension. Your blood pressure goes down when you stand up. Symptoms can include dizziness, transient loss of vision, ringing in the ears, nausea, and fainting. At this time, there's no evidence of a serious problem requiring hospitalization. Orthostatic hypotension can be caused by dehydration, poor nutrition, over- exercise, or medication. For some people, orthostatic hypotension is an ongoing problem, and no cause can be found. We usually treat orthostatic hypotension with fluids. We look for a treatab le cause. If no cause was found, you should get enough rest, exercise moderately, and get plenty of fluids. When you feel the first symptoms suggesting you might faint, sit or squat down as quickly as you can. If symptoms don't go away quickly, lie down. Call the doctor or return if you are worsening or if new symptoms develop. Dehydration Dehydration can result from vomiting or diarrhea, fever, or decreased intake of fluids. If severe, hospitalization and intravenous fluids may be required. Most cases are treated at home with fluids by mouth. For the next 24 hours, drink lots of clear fluids. In mild cases, this can be soda pop or sports drinks. For more severe dehydration, the doctor may recommend special fluids such as Pedialyte or Lytren. Try to get three liters ( 3 quarts) of fluid per day. If vomiting occurs, continue to drink the fluids frequently (every 15 to 20 minutes), but in small amounts (one or two ounces). Depending on the type of dehydration, the doctor may prescribe antinausea medicine or potassium replacements. Call the doctor or return for re-examination if you become progressively weak, vomit repeatedly, or have other new symptoms. Follow-up with Dr. Quezada in the office tomorrow. Call in the morning for an appointment time. Do not take your lisinopril tomorrow morning. RETURN TO THE EMERGENCY ROOM IF ANY NEW OR WORSENING SYMPTOMS. Referrals: LUZ MARIA VILLALOBOS PA [NO LOCAL MD] - Follow up as needed I personally performed the services described in the documentation, reviewed and edited the documentation which was dictated to the scribe in my presence, and it accurately records my words and actions.
[2020-03-03 15:18] LABS: APPEARANCE,URINE CLEAR; BILIRUBIN,URINE NEGATIVE (NEGATIVE); COLOR,URINE STRAW; GLUCOSE, URINE NEGATIVE (NEGATIVE); KETONES,URINE NEGATIVE (NEGATIVE); LEUKOCYTE ESTERASE,URINE NEGATIVE (NEGATIVE); NITRITE,URINE NEGATIVE (NEGATIVE); PROTEIN,URINE NEGATIVE (NEGATIVE); URINE SPECIFIC GRAVITY 1.004; UROBILINOGEN,URINE NEGATIVE mg/dL (<2.0)
--- NOTE | 2020-03-03 15:18 | EKG REPORT ---
SEVERITY:- ABNORMAL ECG - ATRIAL-PACED RHYTHM V CAPTURE : Confirmed by: Eunice Dejesus MD 03-Mar-2020 15:17:59
[2020-03-03 18:38] VITALS: BP 155/79
== END 2020-03-03 18:38 | disposition home or self-care (01) ==
LOC: ER 11:39
DX: I95.1 Orthostatic hypotension (principal); E86.0 Dehydration; R53.1 Weakness; Z88.8 Allergy status to other drugs, medicaments and biological substances; Z88.0 Allergy status to penicillin; Z79.899 Other long term (current) drug therapy; Z79.84 Long term (current) use of oral hypoglycemic drugs; I10 Essential (primary) hypertension; E11.9 Type 2 diabetes mellitus without complications
CPT/HCPCS: 93005; 99291; 96360; 96361; 36415; 82550; 85025; 80053; 81001; 84484; 71045; 70450; 93010; J7030